=== PATIENT | male | born 1965 | race Caucasian/White ===

== ENCOUNTER 2018-10-20 17:54 | Emergency (ER) | payer OTHER ==
[~2018-10-20] VITALS: Ht 190.5 cm; Wt 104.3 kg
[2018-10-20 17:56] VITALS: BP 97/50
== END 2018-10-20 19:14 | disposition home or self-care (01) ==
LOC: ER 17:54
DX: S41.021A Laceration with foreign body of right shoulder, initial encounter (principal); F41.9 Anxiety disorder, unspecified; F32.9 Major depressive disorder, single episode, unspecified; I10 Essential (primary) hypertension; E78.00 Pure hypercholesterolemia, unspecified; F17.210 Nicotine dependence, cigarettes, uncomplicated; Z88.0 Allergy status to penicillin; Z88.1 Allergy status to other antibiotic agents; W18.39XA Other fall on same level, initial encounter; Y93.89 Activity, other specified; Y92.89 Other specified places as the place of occurrence of the external cause; Y99.8 Other external cause status